=== PATIENT | female | born 1955 | race Caucasian/White ===

== ENCOUNTER → 2018-08-10 | Day surgery (SDC) | payer BC ==
[~2018-08-10] MED LIST: ALLERGY RELIEF25 M1 PO; BENTYL10 MG/1 ML PO; CLONAZEPAM1 MG PO; DILAUDID2 MG PO; ESTROGEN-METHY1 EAC1 PO; ESTROGEN-METHY1 EAC2 PO; FLAGYL500 MG PO; FLONASE; LABETALOL HCL100 MG PO; LANSOPRAZOLE30 MG PO; LAXATIVE DIETA500 MG PO; LEVAQUIN500 MG PO; LEVOTHYROXINE88 MCG PO; LYRICA75 MG PO; MECLIZINE HCL25 MG PO; METFORMIN HCL500 M2 PO; METOPROLOL SUCC50 MG PO; MIDAZOLAM HCL 2 MG/2 ML VIAL ONE; NEXIUM40 MG PO; NIFEDIPINE ER30 M1 PO; PROMETHAZINE HC25 M1 PO; PROPOFOL IV EMULSION 10 MG/ML 50 ML VIAL ONE; SERTRALINE HCL100 MG PO; STOOL SOFTENER50 MG PO; SYNTHROID125 MCG PO; TRAZODONE HCL150 MG PO; VIBERZI PO; VITAMIN D250000 UNIT PO; ZOFRAN4 MG/5 ML PO
[2018-08-10 13:20] VITALS: BP 140/71
--- OUTSIDE RECORDS SUMMARY | 2018-08-17 12:17 | XMS REPORT ---
Author Author [facility] Address Unknown Phone Unavailable Care Team Providers Care Data Processing Mechanic Name Role Phone OTF MOYA Unavailable Unavailable Problems This patient has no known problems. Allergies, Adverse Reactions, Alerts This patient has no known allergies or adverse reactions. Medications This patient has no known medications. Results Test Description Test Time Test Comments Text Results Atomic Results Result Comments US RENAL RETROPERITONEAL COMP [place] [address] Patient Name: NEERU BETANCUR MR #: [id number] : 1955 Age/Sex: 61/F Req #: [id number] [facility] Physician: Ordered by: OTF MOYA MD Report #: [id number] Location: Room/Bed: Procedure: [id number] US/US RENAL RETROPERITONEAL COMP Exam Date: 07/31/17 Exam Time: 1354 REPORT STATUS: Signed PROCEDURE: US RETROPERITONEAL ( KIDNEY ). COMPARISON: None. INDICATIONS: Mixed Incontinence, Incomplete Bladder Emptying TECHNIQUE: Blackman-scale and color sonographic images of the bilateral kidneys and bladder where obtained in transverse and longitudinal planes. FINDINGS: RIGHT KIDNEY: 8.2 x 3.0 x 3.6 cm, cortex 0.8 cm Cysts: None Solid masses: None Stones: None Hydronephrosis: None Echogenicity: Increased LEFT KIDNEY: 10.6 x 6.6 x 5.5 cm, cortex 1.7 cm Cysts: None Solid masses: None Stones: None Hydronephrosis: None Echogenicity: Increased Bladder: Normal. Bilateral ureteral jets are visualized. CONCLUSION: 1. Echogenic bilateral kidneys consistent with medical renal disease. 2. Right kidney is smaller with thinner renal cortex. Correlate for possible renal artery stenosis. Dictated by: Brandon Richards M.D. on 07/31/2017 at 14:35 Electronically approved by: Brandon Richards M.D. on 07/31/2017 at 14:35 Dictated By: BRANDON RICHARDS MD [id number] Transcribed By: NEFTALI on 07/31/17 1435 COPY TO: OTF MOYA MD
--- OUTSIDE RECORDS SUMMARY | 2018-08-17 12:17 | XMS REPORT | Clinical Summary ---
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 Disp. Refills Start End Date Status Date HYDROcodone-acetaminophen Take 1 tablet by mouth Active (NORCO) 10-325 mg per every 6 (six) hours as tablet needed for moderate pain. promethazine (PHENERGAN) Take 25 mg by mouth every Active 25 MG tablet 6 (six) hours as needed for nausea or vomiting. estradiol (ESTRACE) 0.5 Take 0.5 mg by mouth Active MG tablet daily. metFORMIN XR Take 500 mg by mouth 2 Active (GLUCOPHAGE-XR) 500 mg 24 (two) times a day. hr tablet levothyroxine (SYNTHROID, Take 100 mcg by mouth Active LEVOXYL) 125 mcg tablet every morning. traZODone (DESYREL) 150 Take 150 mg by mouth Active MG tablet nightly. dicyclomine (BENTYL) 10 Take 10 mg by mouth 4 Active MG capsule (four) times a day as needed. lansoprazole (PREVACID) Take 30 mg by mouth 2 Active 30 MG capsule (two) times a day. meclizine (ANTIVERT) 25 Take 25 mg by mouth 3 Active mg tablet (three) times a day as needed for dizziness. pregabalin (LYRICA) 75 MG Take 75 mg by mouth Active capsule nightly. clonAZEPAM (KlonoPIN) 1 Take 2 mg by mouth every Active MG tablet morning. estrogens-methyltestoster Take 1 tablet by mouth Active one (EEMT,COVARYX) daily. 1.25-2.5 mg per tablet DULoxetine (CYMBALTA) 60 Take 60 mg by mouth Active MG capsule daily. sertraline (ZOLOFT) 100 Take 100 mg by mouth Active MG tablet daily. QUEtiapine (SEROquel) 100 Take 100 mg by mouth Active MG tablet nightly. NIFEdipine XL (PROCARDIA Take 60 mg by mouth Active XL) 60 MG 24 hr tablet daily. metoprolol succinate XL Take 50 mg by mouth Active (TOPROL-XL) 50 mg 24 hr daily. tablet fluticasone (FLONASE) 50 2 sprays by Each Nare Active mcg/actuation nasal spray route daily. eluxadoline (VIBERZI) 100 Take 100 mg by mouth 2 03/31/20 Discontin mg tablet tablet (two) times a day. 18 ued clonAZEPAM (KlonoPIN) 1 Take 1 mg by mouth 2 06/11/20 Discontin MG tablet (two) times a day. 1 tab 18 ued at noon and bedtime sertraline (ZOLOFT) 100 Take 100 mg by mouth 03/31/20 Discontin MG tablet daily. 18 ued ergocalciferol (VITAMIN Take 50,000 Units by 06/11/20 Discontin D2) 50,000 unit capsule mouth once a week. 18 ued esomeprazole (NexIUM) 40 Take 40 mg by mouth daily 03/31/20 Discontin MG capsule before breakfast. 18 ued fluticasone (FLONASE) 50 2 sprays by Each Nare 03/31/20 Discontin mcg/actuation nasal spray route daily. 18 ued clonIDINE HCl (CATAPRES) Take 0.2 mg by mouth 2 06/11/20 Discontin 0.2 MG tablet (two) times a day. Am and 18 ued bedtime clonIDINE (CATAPRES) 0.1 Take 0.5 mg by mouth 06/11/20 Discontin MG tablet daily. At 2pm 18 ued Active Problems Problem Noted Date Synovitis of left shoulder 06/22/2018 Chronic left shoulder pain 06/11/2018 Rotator cuff insufficiency of left shoulder 06/11/2018 Current every day smoker 06/11/2018 Abscess of lower back 04/01/2018 Weakness 03/30/2018 Encounters Date Type Specialty Care Team Description 06/22/2018 Office Visit Orthopedic Surgery Mian Roger MD Chronic left shoulder pain (Primary Dx); Synovitis of left shoulder; Current every day smoker 06/18/2018 Hospital Radiology Mian Roger MD Chronic pain in left Encounter shoulder 06/16/2018 Orders Only Orthopedic Surgery Mian Roger MD Chronic pain in left shoulder (Primary Dx) 06/14/2018 Telephone Orthopedic Surgery Mian Roger MD 06/12/2018 Hospital Radiology Mian Roger MD Encounter 06/12/2018 Hospital Radiology Mian Roger MD Encounter 06/12/2018 Ancillary Radiology Mian Roger MD Orders 06/11/2018 Office Visit Orthopedic Surgery Mian Roger MD Chronic left shoulder pain (Primary Dx); Rotator cuff insufficiency of left shoulder; Current every day smoker 04/04/2018 Anesthesia General Surgery Sean Hess MD Event 04/04/2018 Procedure Pass General Surgery 04/04/2018 Surgery General Surgery Balta Washington MD Cholecystectomy, Laparoscopic, With Possible Cholangiography 03/30/2018 [facility] General Internal Medicine Bryce Sanchez (Primary Dx); - Encounter MD Jourdan Epigastric pain 04/13/2018 Karie Garnica MD after 08/09/2017 Social History Tobacco Use Types Packs/Day Years Used Date Current Every Day Smoker Cigarettes Smokeless Tobacco: Never Used Alcohol Use Drinks/Week oz/Week Comments No Sex Assigned at Date Recorded Not on file Last Filed Vital Signs Vital Sign Reading Time Taken Blood Pressure 176/87 04/13/2018 7:25 AM CDT Pulse 87 04/13/2018 7:25 AM CDT Temperature 36.3 C (97.4 F) 04/13/2018 7:25 AM CDT Respiratory Rate 20 04/13/2018 7:25 AM CDT Oxygen Saturation 95% 04/13/2018 7:25 AM CDT Inhaled Oxygen - - Concentration Weight 62.1 kg (137 lb) 06/22/2018 3:05 PM CDT Height 162.6 cm (5' 4") 06/22/2018 3:05 PM CDT Body Mass Index 23.52 06/22/2018 3:05 PM CDT Plan of Treatment Health Maintenance Due Date Last Done Comments CERVICAL CANCER SCREENING 1977 BREAST CANCER SCREENING 2006 COLON CANCER SCREENING 2006 SHINGRIX VACCINE (#1) 2006 ZOSTER VACCINE 2016 INFLUENZA VACCINE 06/02/2018 Procedures Procedure Name Priority Date/Time Associated Diagnosis Comments FL ARTHROGRAM SHOULDER Routine 06/18/2018 Chronic pain in left Results for this LEFT 4:57 PM CDT shoulder procedure are in the results section. XR UPPER EXTREMITY Routine 06/14/2018 Results for this EXTERNAL STUDY 4:25 PM CDT procedure are in the results section. XR SPINE EXTERNAL STUDY Routine 06/04/2018 Results for this 4:25 PM CDT procedure are in the results section. POC GLUCOSE Routine 04/13/2018 Results for this 6:27 AM CDT procedure are in the results section. POC GLUCOSE Routine 04/12/2018 Results for this 8:55 PM CDT procedure are in the results section. POC GLUCOSE Routine 04/12/2018 Results for this 3:35 PM CDT procedure are in the results section. POC GLUCOSE Routine 04/12/2018 Results for this 11:36 AM CDT procedure are in the results section. IONIZED CALCIUM Routine 04/12/2018 Results for this 7:57 AM CDT procedure are in the results section. POC GLUCOSE Routine 04/12/2018 Results for this 6:41 AM CDT procedure are in the results section. POC GLUCOSE Routine 04/11/2018 Results for this 9:23 PM CDT procedure are in the results section. POC GLUCOSE Routine 04/11/2018 Results for this 4:24 PM CDT procedure are in the results section. XR ABDOMEN 1 VW STAT 04/11/2018 Results for this 1:57 PM CDT procedure are in the results section. POC GLUCOSE Routine 04/11/2018 Results for this 12:11 PM CDT procedure are in the results section. ZZESTIMATED GFR STAT 04/11/2018 Results for this 9:12 AM CDT procedure are in the results section. PHOSPHORUS LEVEL STAT 04/11/2018 Results for this 9:12 AM CDT procedure are in the results section. MAGNESIUM LEVEL STAT 04/11/2018 Results for this 9:12 AM CDT procedure are in the results section. COMPREHENSIVE METABOLIC STAT 04/11/2018 Results for this PANEL 9:12 AM CDT procedure are in the results section. HC COMPLETE BLD COUNT STAT 04/11/2018 Results for this W/AUTO DIFF 9:12 AM CDT procedure are in the results section. POC GLUCOSE Routine 04/11/2018 Results for this 6:35 AM CDT procedure are in the results section. POC GLUCOSE Routine 04/10/2018 Results for this 8:36 PM CDT procedure are in the results section. POC GLUCOSE Routine 04/10/2018 Results for this 11:39 AM CDT procedure are in the results section. POC GLUCOSE Routine 04/10/2018 Results for this 6:26 AM CDT procedure are in the results section. POC GLUCOSE Routine 04/09/2018 Results for this 8:54 PM CDT procedure are in the results section. POC GLUCOSE Routine 04/09/2018 Results for this 3:51 PM CDT procedure are in the results section. POC GLUCOSE Routine 04/09/2018 Results for this 10:48 AM CDT procedure are in the results section. XR ABDOMEN 1 VW PORTABLE STAT 04/09/2018 Results for this 10:00 AM CDT procedure are in the results section. ZZESTIMATED GFR Routine 04/09/2018 Results for this 7:25 AM CDT procedure are in the results section. PHOSPHORUS LEVEL Routine 04/09/2018 Results for this 7:25 AM CDT procedure are in the results section. MAGNESIUM LEVEL Routine 04/09/2018 Results for this 7:25 AM CDT procedure are in the results section. BASIC METABOLIC PANEL Routine 04/09/2018 Results for this 7:25 AM CDT procedure are in the results section. POC GLUCOSE Routine 04/09/2018 Results for this 6:29 AM CDT procedure are in the results section. POC GLUCOSE Routine 04/08/2018 Results for this 8:28 PM CDT procedure are in the results section. POC GLUCOSE Routine 04/08/2018 Results for this 5:29 PM CDT procedure are in the results section. POC GLUCOSE Routine 04/08/2018 Results for this 2:08 PM CDT procedure are in the results section. ZZESTIMATED GFR Routine 04/08/2018 Results for this 10:56 AM CDT procedure are in the results section. BASIC METABOLIC PANEL Routine 04/08/2018 Results for this 10:56 AM CDT procedure are in the results section. HC COMPLETE BLD COUNT Routine 04/08/2018 Results for this W/AUTO DIFF 10:56 AM CDT procedure are in the results section. POC GLUCOSE Routine 04/08/2018 Results for this 9:57 AM CDT procedure are in the results section. POC GLUCOSE Routine 04/08/2018 Results for this 6:31 AM CDT procedure are in the results section. POC GLUCOSE Routine 04/07/2018 Results for this 4:16 PM CDT procedure are in the results section. XR ABDOMEN 1 VW STAT 04/07/2018 Results for this 4:00 PM CDT procedure are in the results section. POC GLUCOSE Routine 04/07/2018 Results for this 11:09 AM CDT procedure are in the results section. ECG 12-LEAD Routine 04/07/2018 Results for this 9:52 AM CDT procedure are in the results section. POC GLUCOSE Routine 04/07/2018 Results for this 5:57 AM CDT procedure are in the results section. POC GLUCOSE Routine 04/06/2018 Results for this 8:17 PM CDT procedure are in the results section. POC GLUCOSE Routine 04/06/2018 Results for this 4:42 PM CDT procedure are in the results section. POC GLUCOSE Routine 04/06/2018 Results for this 11:33 AM CDT procedure are in the results section. ZZESTIMATED GFR Routine 04/06/2018 Results for this 9:09 AM CDT procedure are in the results section. BASIC METABOLIC PANEL Routine 04/06/2018 Results for this 9:09 AM CDT procedure are in the results section. HC COMPLETE BLD COUNT Routine 04/06/2018 Results for this W/AUTO DIFF 9:09 AM CDT procedure are in the results section. POC GLUCOSE Routine 04/06/2018 Results for this 7:56 AM CDT procedure are in the results section. POC GLUCOSE Routine 04/06/2018 Results for this 6:33 AM CDT procedure are in the results section. POC GLUCOSE Routine 04/05/2018 Results for this 8:32 PM CDT procedure are in the results section. POC GLUCOSE Routine 04/05/2018 Results for this 5:02 PM CDT procedure are in the results section. POC GLUCOSE Routine 04/05/2018 Results for this 6:45 AM CDT procedure are in the results section. POC GLUCOSE Routine 04/04/2018 Results for this 9:11 PM CDT procedure are in the results section. POC GLUCOSE Routine 04/04/2018 Results for this 4:34 PM CDT procedure are in the results section. GRAM STAIN Timed 04/04/2018 Results for this 4:15 PM CDT procedure are in the results section. AEROBIC CULTURE Timed 04/04/2018 Results for this 4:15 PM CDT procedure are in the results section. ANAEROBIC CULTURE Timed 04/04/2018 Results for this 4:15 PM CDT procedure are in the results section. FL CHOLANGIOGRAM Routine 04/04/2018 Results for this INTRAOPERATIVE 4:09 PM CDT procedure are in the results section. SURGICAL PATHOLOGY Routine 04/04/2018 Results for this REQUEST 3:35 PM CDT procedure are in the results section. PA AN ELECTIVE Routine 04/04/2018 ENDOTRACHEAL AIRWAY 3:08 PM CDT Procedure Note - Sean Hess MD - 04/04/2018 3:08 PM CDT Airway Date/Time: 04/04/2018 3:02 PM Performed by: SEAN HESS Authorized by: SEAN HESS Location: OR Urgency: Elective Difficult Airway: No Anesthesio logist: SEAN HESS Performed by: anesthesio logist Preoxygena eulalia with 100% O2: Yes Mask Ventilatio n: Easy mask Final Airway Type: Endotrache al airway Final Endotrache al Airway: ETT Cuffed: Yes Technique Used: Direct laryngosco py Insertion Site: Oral Blade Type: Turner Laryngosco pe Blade/Vide olaryngosc ope Blade Size: 3 ETT Size (mm): 7.0 Cuff at minimum occlusion pressure: Yes Measured from: Lips ETT to Lips (cm): 20 Placement Verified by: CO2 detection, direct visualizat ion and equal breath sounds Laryngosco pic view: Grade I - full view of glottis Rapid Sequence Induction (RSI): No Modified RSI: No Number of Attempts at Approach: 1 POC GLUCOSE Routine 04/04/2018 Results for this 2:16 PM CDT procedure are in the results section. ZZESTIMATED GFR STAT 04/04/2018 Results for this 6:25 AM CDT procedure are in the results section. BASIC METABOLIC PANEL STAT 04/04/2018 Results for this 6:25 AM CDT procedure are in the results section. HC COMPLETE BLD COUNT STAT 04/04/2018 Results for this W/AUTO DIFF 6:25 AM CDT procedure are in the results section. POC GLUCOSE Routine 04/03/2018 Results for this 8:37 PM CDT procedure are in the results section. POC GLUCOSE Routine 04/03/2018 Results for this 4:07 PM CDT procedure are in the results section. POC GLUCOSE Routine 04/03/2018 Results for this 11:03 AM CDT procedure are in the results section. ECHOCARDIOGRAM 2D Routine 04/03/2018 Results for this COMPLETE W MMODE SPECTRAL 10:54 AM CDT procedure are in the COLOR DOPPLER ([id number]) results section. US ABDOMEN COMPLETE Routine 04/03/2018 Results for this 8:38 AM CDT procedure are in the results section. POC GLUCOSE Routine 04/03/2018 Results for this 6:51 AM CDT procedure are in the results section. ZZESTIMATED GFR Routine 04/03/2018 Results for this 6:46 AM CDT procedure are in the results section. HC COMPLETE BLD COUNT Routine 04/03/2018 Results for this W/AUTO DIFF 6:46 AM CDT procedure are in the results section. BASIC METABOLIC PANEL Routine 04/03/2018 Results for this 6:46 AM CDT procedure are in the results section. US LOWER BACK Routine 04/02/2018 Results for this 9:53 PM CDT procedure are in the results section. POC GLUCOSE Routine 04/02/2018 Results for this 8:39 PM CDT procedure are in the results section. POC GLUCOSE Routine 04/02/2018 Results for this 4:41 PM CDT procedure are in the results section. ECG 12-LEAD STAT 04/02/2018 Results for this 3:49 PM CDT procedure are in the results section. POC GLUCOSE Routine 04/02/2018 Results for this 11:26 AM CDT procedure are in the results section. POC GLUCOSE Routine 04/02/2018 Results for this 6:16 AM CDT procedure are in the results section. POC GLUCOSE Routine 04/01/2018 Results for this 9:18 PM CDT procedure are in the results section. CT LUMBAR SPINE WO STAT 04/01/2018 Results for this CONTRAST 3:53 PM CDT procedure are in the results section. CT CHEST W CONTRAST STAT 04/01/2018 Results for this ABDOMEN W CONTRAST PELVIS 3:53 PM CDT procedure are in the W CONTRAST results section. POC GLUCOSE Routine 04/01/2018 Results for this 3:12 PM CDT procedure are in the results section. POC GLUCOSE Routine 04/01/2018 Results for this 10:33 AM CDT procedure are in the results section. HEMOGLOBIN A1C Routine 04/01/2018 Results for this 7:07 AM CDT procedure are in the results section. POC GLUCOSE Routine 04/01/2018 Results for this 6:27 AM CDT procedure are in the results section. POC GLUCOSE Routine 03/31/2018 Results for this 10:03 PM CDT procedure are in the results section. POC GLUCOSE Routine 03/31/2018 Results for this 3:56 PM CDT procedure are in the results section. THYROID STIMULATING STAT 03/31/2018 Results for this HORMONE 2:48 PM CDT procedure are in the results section. T4, FREE STAT 03/31/2018 Results for this 2:48 PM CDT procedure are in the results section. T3, FREE STAT 03/31/2018 Results for this 2:48 PM CDT procedure are in the results section. ZZESTIMATED GFR STAT 03/31/2018 Results for this 2:48 PM CDT procedure are in the results section. TROPONIN STAT 03/31/2018 Results for this 2:48 PM CDT procedure are in the results section. PHOSPHORUS LEVEL STAT 03/31/2018 Results for this 2:48 PM CDT procedure are in the results section. HEPATIC FUNCTION PANEL STAT 03/31/2018 Results for this 2:48 PM CDT procedure are in the results section. AMYLASE LEVEL STAT 03/31/2018 Results for this 2:48 PM CDT procedure are in the results section. LIPASE LEVEL STAT 03/31/2018 Results for this 2:48 PM CDT procedure are in the results section. MAGNESIUM LEVEL STAT 03/31/2018 Results for this 2:48 PM CDT procedure are in the results section. HC COMPLETE BLD COUNT STAT 03/31/2018 Results for this W/AUTO DIFF 2:48 PM CDT procedure are in the results section. BASIC METABOLIC PANEL STAT 03/31/2018 Results for this 2:48 PM CDT procedure are in the results section. POC GLUCOSE Routine 03/31/2018 Results for this 11:11 AM CDT procedure are in the results section. D-DIMER STAT 03/31/2018 Results for this 9:04 AM CDT procedure are in the results section. POC GLUCOSE Routine 03/31/2018 Results for this 6:01 AM CDT procedure are in the results section. TROPONIN Timed 03/31/2018 Results for this 3:05 AM CDT procedure are in the results section. POC GLUCOSE Routine 03/31/2018 Results for this 1:19 AM CDT procedure are in the results section. CT HEAD WO CONTRAST STAT 03/30/2018 Results for this 11:51 PM CDT procedure are in the results section. URINALYSIS SCREEN AND Routine 03/30/2018 Results for this MICROSCOPY, WITH REFLEX 11:30 PM CDT procedure are in the TO CULTURE results section. GRAM STAIN Routine 03/30/2018 Results for this 11:30 PM CDT procedure are in the results section. URINE CULTURE Routine 03/30/2018 Results for this 11:30 PM CDT procedure are in the results section. ECG 12-LEAD STAT 03/30/2018 Results for this 10:46 PM CDT procedure are in the results section. ECG ED PRELIMINARY Routine 03/30/2018 Results for this INTERPRETATION 10:28 PM CDT procedure are in the results section. ZZESTIMATED GFR STAT 03/30/2018 Results for this 9:39 PM CDT procedure are in the results section. LACTIC ACID LEVEL, SEPSIS STAT 03/30/2018 Results for this - NOW AND REPEAT 2X EVERY 9:39 PM CDT procedure are in the 3 HOURS results section. LIPASE LEVEL STAT 03/30/2018 Results for this 9:39 PM CDT procedure are in the results section. TROPONIN STAT 03/30/2018 Results for this 9:39 PM CDT procedure are in the results section. HC COMPLETE BLD COUNT STAT 03/30/2018 Results for this W/AUTO DIFF 9:39 PM CDT procedure are in the results section. BASIC METABOLIC PANEL STAT 03/30/2018 Results for this 9:39 PM CDT procedure are in the results section. XR CHEST 1 VW PORTABLE STAT 03/30/2018 Results for this 9:31 PM CDT procedure are in the results section. after 08/09/2017 Results * FL Arthrogram Shoulder Left (06/18/2018 4:57 PM) Narrative Performed At EXAMINATION:FL ARTHROGRAM SHOULDER LEFT [facility] CLINICAL HISTORY:M25.512 Pain in left shoulder, G89.29 Other chronic pain, shoulder pain consistent with rotstor cuff insufficiency left COMPARISON:None. PROCEDURE: The risks, benefits, and alternatives to procedure discussed, the patient agreed to proceed. The left shoulder was prepped and draped in a sterile manner. A timeout was performed to verify the patient's identity and the proposed procedure. 1% lidocaine was given for local anesthesia. Under fluoroscopic guidance, a 22-gauge needle was advanced into the left glenohumeral joint space and Omnipaque 240 was injected. The needle was then withdrawn and gentle pressure was started to the puncture site. Multiple static images were obtained of the left shoulder in different positions. The patient tolerated the procedure well without any immediate complications. FINDINGS: There is a good amount of contrast injected into the joint space. There is some slight irregularity of the intracapsular space could represent some mild synovitis. There is no extracapsular contrast leak. There is no irregularity of the undersurface of the rotator cuff. The glenohumeral joint space is maintained. There is narrowing of the AC joint space without erosions. Mineralization is normal. No acute fracture or dislocations are seen. IMPRESSION: No full-thickness rotator cuff tear or obvious signs of partial tear. Mild synovitis. Fluoroscopy time 2.6 minutes, 13 images obtained. [id number] Procedure Note Interface, Radiology Results Incoming - 06/21/2018 10:21 AM CDT EXAMINATION: FL ARTHROGRAM SHOULDER LEFT CLINICAL HISTORY: M25.512 Pain in left shoulder, G89.29 Other chronic pain, shoulder pain consistent with rotstor cuff insufficiency left COMPARISON: None. PROCEDURE: The risks, benefits, and alternatives to procedure discussed, the patient agreed to proceed. The left shoulder was prepped and draped in a sterile manner. A timeout was performed to verify the patient's identity and the proposed procedure. 1% lidocaine was given for local anesthesia. Under fluoroscopic guidance, a 22-gauge needle was advanced into the left glenohumeral joint space and Omnipaque 240 was injected. The needle was then withdrawn and gentle pressure was started to the puncture site. Multiple static images were obtained of the left shoulder in different positions. The patient tolerated the procedure well without any immediate complications. FINDINGS: There is a good amount of contrast injected into the joint space. There is some slight irregularity of the intracapsular space could represent some mild synovitis. There is no extracapsular contrast leak. There is no irregularity of the undersurface of the rotator cuff. The glenohumeral joint space is maintained. There is narrowing of the AC joint space without erosions. Mineralization is normal. No acute fracture or dislocations are seen. IMPRESSION: No full-thickness rotator cuff tear or obvious signs of partial tear. Mild synovitis. Fluoroscopy time 2.6 minutes, 13 images obtained. [id number] Performing Organization Address City/State/Zipcode Phone Number [facility] [address] [place] [address] * XR Upper Extremity External Study (06/14/2018 4:25 PM) Narrative Performed At This exam was not acquired at a [facility] facility and has not been [facility] interpreted by a [employer] Provider.The exam was imported into our imaging system for comparisons purposes. Performing Organization Address [facility] Phone Number [facility] [address] [place] [address] * XR Spine External Study (06/04/2018 4:25 PM) Narrative Performed At This exam was not acquired at a [facility] facility and has not been [facility] interpreted by a [employer] Provider.The exam was imported into our imaging system for comparisons purposes. Performing Organization Address [facility] Phone Number [facility] [address] [place] [address] * POC glucose (04/13/2018 6:27 AM) Only the most recent of 52 results within the time period is included. POC glucose 116 (H) 65 - 100 mg/dL [facility] OF Comment: PATHOLOGY AND Meter ID: [id number] GENOMIC MEDICINE Box Turner: Magdy Damon Performing Organization Address [facility] [address] PATHOLOGY AND GENOMIC MEDICINE * Ionized calcium (04/12/2018 7:57 AM) pH 7.45 [facility] OF [facility]OLOGY AND GENOMIC MEDICINE Ionized calcium 1.14 1.11 - 1.32 mmol/L [facility] OF [facility]OLOGY AND GENOMIC MEDICINE Specimen Plasma specimen Performing Organization Address [facility] [place] [address] PATHOLOGY AND GENOMIC MEDICINE * XR Abdomen 1 Vw (04/11/2018 1:57 PM) Only the most recent of 2 results within the time period is included. Narrative Performed At EXAMINATION:XR ABDOMEN 1 VW [facility] CLINICAL HISTORY:nausea COMPARISON:None 04/09/2018. FINDINGS: The bowel gas pattern is nonspecific. No pathologic masses or calcifications are identified. The lung bases are free of acute disease. Regional skeletal structures are within normal limits. IMPRESSION: Bowel gas has increased throughout the small bowel when compared to the prior study. The amount stool in the colon is decreased when compared to the prior study. [id number] Procedure Note Interface, Radiology Results Incoming - 04/11/2018 2:16 PM CDT EXAMINATION: XR ABDOMEN 1 VW CLINICAL HISTORY: nausea COMPARISON: None 04/09/2018. FINDINGS: The bowel gas pattern is nonspecific. No pathologic masses or calcifications are identified. The lung bases are free of acute disease. Regional skeletal structures are within normal limits. IMPRESSION: Bowel gas has increased throughout the small bowel when compared to the prior study. The amount stool in the colon is decreased when compared to the prior study. [id number] Performing Organization Address City/[facility]/Zipcode Phone Number [facility] [address] [place] [address] * Estimated GFR (04/11/2018 9:12 AM) Only the most recent of 8 results within the time period is included. GFR Non Af Amer 85 mL/min/1.73 m2 [facility] OF PATHOLOGY AND GENOMIC MEDICINE GFR Af Amer >90 mL/min/1.73 m2 [facility] OF Comment: PATHOLOGY AND Chronic kidney disease: <60 GENOMIC MEDICINE mL/min/1.73m2 Kidney failure: <15 mL/min/1.73m2 The estimated GFR is calculated from the IDMS-traceable Modification of Diet in Renal Disease Equation. The accuracy of the calculation is poor when the creatinine is normal. Calculated values >90 mL/min/1.73m2 are not reported. This equation has not been validated in children (<18 years), women, the elderly (>70 years), or ethnic groups other than Caucasians and Americans. Specimen Plasma specimen Performing Organization Address City/[facility]/Zipcode Phone Number [address] [place] [address] PATHOLOGY AND GENOMIC MEDICINE * CBC with platelet and differential (04/11/2018 9:12 AM) Only the most recent of 7 results within the time period is included. WBC 10.7 4.2 - 11.0 k/uL [facility]OLOGY AND GENOMIC MEDICINE RBC 3.97 (L) 4.04 - 5.86 m/uL [facility]OLOGY AND GENOMIC MEDICINE HGB 11.2 (L) 11.5 - 15.3 g/dL [facility] PATHOLOGY AND GENOMIC MEDICINE HCT 35.1 34.0 - 45.0 % [facility] PATHOLOGY AND GENOMIC MEDICINE MCV 88.4 80.0 - 98.0 fL [facility] PATHOLOGY AND GENOMIC MEDICINE MCH 28.2 27.0 - 34.0 pg [facility] PATHOLOGY AND GENOMIC MEDICINE MCHC 31.9 31.5 - 36.5 g/dL [facility] PATHOLOGY AND GENOMIC MEDICINE RDW - SD 47.1 37.0 - 51.0 fL [facility] PATHOLOGY AND GENOMIC MEDICINE MPV 11.0 (H) 7.4 - 10.4 fL [facility]OLOGY AND GENOMIC MEDICINE Platelet count 283 150 - 400 k/uL [facility] PATHOLOGY AND GENOMIC MEDICINE Nucleated RBC 0.00 /100 WBC [facility] PATHOLOGY AND GENOMIC MEDICINE Neutrophils 62.3 36.0 - 66.0 % [facility] PATHOLOGY AND GENOMIC MEDICINE Lymphocytes 26.3 24.0 - 44.0 % [facility] PATHOLOGY AND GENOMIC MEDICINE Monocytes 9.7 (H) 0.0 - 6.0 % [facility] PATHOLOGY AND GENOMIC MEDICINE Eosinophils 0.5 0.0 - 6.0 % [facility] PATHOLOGY AND GENOMIC MEDICINE Basophils 0.7 0.0 - 1.2 % [facility] PATHOLOGY AND GENOMIC MEDICINE Immature granulocytes 0.5 0.0 - 1.0 % [facility] PATHOLOGY AND GENOMIC MEDICINE Specimen Blood Performing Organization Address City/[facility] [place] [address] PATHOLOGY AND GENOMIC MEDICINE * Phosphorus level (04/11/2018 9:12 AM) Only the most recent of 3 results within the time period is included. Phosphorus 2.5 2.5 - 4.5 mg/dL [facility] PATHOLOGY AND GENOMIC MEDICINE Specimen Plasma specimen Performing Organization Address City/[facility] [place] [address] PATHOLOGY AND [facility] * Magnesium level (04/11/2018 9:12 AM) Only the most recent of 3 results within the time period is included. Magnesium 1.80 1.60 - 2.40 mg/dL [facility] PATHOLOGY AND GENOMIC MEDICINE Specimen Plasma specimen Performing Organization Address [facility] [place] [address] PATHOLOGY AND GENOMIC MEDICINE * Comprehensive metabolic panel (04/11/2018 9:12 AM) Sodium 140 135 - 150 mEq/L [facility] OF PATHOLOGY AND GENOMIC MEDICINE Potassium 3.7 3.5 - 5.0 mEq/L [facility] OF PATHOLOGY AND GENOMIC MEDICINE Chloride 108 100 - 109 mEq/L [facility] PATHOLOGY AND GENOMIC MEDICINE CO2 26 24 - 32 mmol/L [facility] OF PATHOLOGY AND GENOMIC MEDICINE Anion gap 6@ANIO (L) 7 - 15 mEq/L [facility] PATHOLOGY AND GENOMIC MEDICINE BUN 4 (L) 7 - 18 mg/dL [facility] PATHOLOGY AND GENOMIC MEDICINE Creatinine 0.7 (L) 0.8 - 1.5 mg/dL [facility] PATHOLOGY AND GENOMIC MEDICINE Glucose 121 (H) 65 - 100 mg/dL [facility] OF PATHOLOGY AND GENOMIC MEDICINE Calcium 8.0 (L) 8.6 - 10.7 mg/dL [facility] PATHOLOGY AND GENOMIC MEDICINE Protein 6.0 (L) 6.3 - 8.2 g/dL [facility] PATHOLOGY AND GENOMIC MEDICINE Albumin 2.5 (L) 3.2 - 5.0 g/dL [facility] PATHOLOGY AND GENOMIC MEDICINE A/G ratio 0.7 0.7 - 3.8 [facility] PATHOLOGY AND GENOMIC MEDICINE Alkaline phosphatase 87 30 - 120 U/L [facility] PATHOLOGY AND GENOMIC MEDICINE AST 13 (L) 15 - 37 U/L [facility] PATHOLOGY AND GENOMIC MEDICINE ALT 22 (L) 30 - 65 U/L [facility] PATHOLOGY AND GENOMIC MEDICINE Total bilirubin 0.4 0.2 - 1.2 mg/dL [facility] PATHOLOGY AND GENOMIC MEDICINE Specimen Plasma specimen Performing Organization Address City/State/Zipcode Phone Number [facility] [address] [facility] [facility] [place] [address] PATHOLOGY AND GENOMIC MEDICINE * XR Abdomen 1 Vw Portable (04/09/2018 10:00 AM) Narrative Performed At EXAMINATION:XR ABDOMEN 1 VW PORTABLE [facility] CLINICAL HISTORY:fecal retention COMPARISON:04/07/2018 FINDINGS: XR ABDOMEN 1 VW PORTABLE images are submitted. The bowel gas pattern is nonspecific. No pathologic masses or calcifications are identified. Bowel gas scattered throughout the small bowel and colon. There is no evidence of any obstruction. There are no dilated loops of bowel. Residual contrast is seen within the colon. There are changes of prior cholecystectomy. IMPRESSION: 1. Mild colonic fecal retention is present. 2. There is no focal bowel obstruction. [facility]-[id number] Procedure Note Interface, Radiology Results Incoming - 04/09/2018 10:06 AM CDT EXAMINATION: XR ABDOMEN 1 VW PORTABLE CLINICAL HISTORY: fecal retention COMPARISON: 04/07/2018 FINDINGS: XR ABDOMEN 1 VW PORTABLE images are submitted. The bowel gas pattern is nonspecific. No pathologic masses or calcifications are identified. Bowel gas scattered throughout the small bowel and colon. There is no evidence of any obstruction. There are no dilated loops of bowel. Residual contrast is seen within the colon. There are changes of prior cholecystectomy. IMPRESSION: 1. Mild colonic fecal retention is present. 2. There is no focal bowel obstruction. [facility]-[id number] Performing Organization Address City/[facility]/Zipcode Phone Number [facility] [address] [place] [address] * Basic metabolic panel (04/09/2018 7:25 AM) Only the most recent of 7 results within the time period is included. Sodium 142 135 - 150 mEq/L [facility] OF PATHOLOGY AND GENOMIC MEDICINE Potassium 3.7 3.5 - 5.0 mEq/L [facility] OF PATHOLOGY AND GENOMIC MEDICINE Chloride 108 100 - 109 mEq/L [facility]Y AND GENOMIC MEDICINE CO2 25 24 - 32 mmol/L [facility] OF PATHOLOGY AND GENOMIC MEDICINE Anion gap 9@ANIO 7 - 15 mEq/L [facility] OF PATHOLOGY AND GENOMIC MEDICINE BUN 3 (L) 7 - 18 mg/dL [facility] PATHOLOGY AND GENOMIC MEDICINE Creatinine 0.6 (L) 0.8 - 1.5 mg/dL [facility] OF PATHOLOGY AND GENOMIC MEDICINE Glucose 106 (H) 65 - 100 mg/dL [facility] OF PATHOLOGY AND GENOMIC MEDICINE Calcium 8.1 (L) 8.6 - 10.7 mg/dL [facility] OF PATHOLOGY AND GENOMIC MEDICINE Specimen Plasma specimen Performing Organization Address City/[facility]/Zipcode Phone Number [address] [place] [address] PATHOLOGY AND GENOMIC MEDICINE * ECG 12 lead (04/07/2018 9:52 AM) Only the most recent of 3 results within the time period is included. Ventricular rate 43 [facility] Atrial rate 43 [facility] PA interval 126 [facility] QRSD interval 74 [facility] QT interval 516 [facility] QTC interval 436 [facility] MUSE P axis 1 26 [facility] MUSE QRS axis 1 41 [facility] MUSE T wave axis 26 [facility] MUSE EKG impression Marked sinus [facility] MUSE bradycardia-Abnormal ECG-In automated comparison with ECG of 02-APR-2018 15:49,-Vent. rate has decreased BY38 BPM-Nonspecific T wave abnormality no longer evident in Anterior leads- Performing Organization Address City/[facility] Phone Number [facility] [address] [place] [phone] * Aerobic culture (04/04/2018 4:15 PM) Aerobic culture isolate Staphylococcus aureus [facility] DEPARTMENT OF Occasional PATHOLOGY AND , susceptibility to follow [facility] This organism is Methicillin Resistant. (A) Comment: Specimen Information Specimen Source: Abscess Specimen Site: Back, lower Specimen Abscess - Back, lower Organism Antibiotic Method Susceptibility Staphylococcus aureus Ampicillin MISBAH mcg/mL: Resistant Staphylococcus aureus Clindamycin MISBAH <=0.5 mcg/mL: Susceptible Staphylococcus aureus Cefazolin MISBAH mcg/mL: Resistant Staphylococcus aureus Erythromycin MISBAH <=0.5 mcg/mL: Susceptible Staphylococcus aureus Levofloxacin MISBAH >4 mcg/mL: Resistant Staphylococcus aureus Linezolid MISBAH 2 mcg/mL: Susceptible Staphylococcus aureus Minocycline MISBAH <=1 mcg/mL: Susceptible Staphylococcus aureus Oxacillin MISBAH >2 mcg/mL: Resistant Staphylococcus aureus Penicillin G MISBAH >1 mcg/mL: Resistant Staphylococcus aureus Rifampin MISBAH <=0.5 mcg/mL: Susceptible Staphylococcus aureus Trimethoprim/Sulfamethoxa MISBAH <=0.5/9.5 mcg/mL: zole Susceptible Staphylococcus aureus Tetracycline MISBAH <=0.5 mcg/mL: Susceptible Staphylococcus aureus Vancomycin MISBAH 1 mcg/mL: Susceptible Performing Organization Address [facility] Phone Number [facility] DEPARTMENT OF [address] [place] [address] PATHOLOGY AND GENOMIC MEDICINE * Gram stain (04/04/2018 4:15 PM) Only the most recent of 2 results within the time period is included. Gram stain isolate Few WBC's [facility] DEPARTMENT OF No organisms seen PATHOLOGY AND Comment: GENOMIC MEDICINE Specimen Information Specimen Source: Abscess Specimen Site: Back, lower Specimen Abscess - Back, lower Performing Organization Address City/State/[facility] Phone Number [facility] DEPARTMENT OF [address] [place] [address] PATHOLOGY AND GENOMIC MEDICINE * Anaerobic culture (04/04/2018 4:15 PM) Anaerobic culture isolate No anaerobic organisms [facility] DEPARTMENT OF isolated. PATHOLOGY AND Comment: GENOMIC MEDICINE Specimen Information Specimen Source: Abscess Specimen Site: Back, lower Specimen Abscess - Back, lower Performing Organization Address City/[facility]/Zipcode Phone Number [address] [address] PATHOLOGY AND GENOMIC MEDICINE * FL Cholangiogram Intraoperative (04/04/2018 4:09 PM) Narrative Performed At EXAMINATION:FL CHOLANGIOGRAM INTRAOPERATIVE [facility] CLINICAL HISTORY:Cholecystectomy COMPARISON:None. TECHNIQUE: Intraoperative cholangiogram was performed. No radiologist present. Spot radiographs were made available for evaluation. Radiation dose: 0.107 mGym2 IMPRESSION: 1.See procedure report for more complete details. 2.Common bile duct appears dilated. No filling defect is seen. Intrahepatic ducts and not opacified. Contrast material enters the duodenum. [facility]-[id number] Procedure Note Interface, Radiology Results Incoming - 04/04/2018 4:29 PM CDT EXAMINATION: FL CHOLANGIOGRAM INTRAOPERATIVE CLINICAL HISTORY: Cholecystectomy COMPARISON: None. TECHNIQUE: Intraoperative cholangiogram was performed. No radiologist present. Spot radiographs were made available for evaluation. Radiation dose: 0.107 mGym2 IMPRESSION: 1. See procedure report for more complete details. 2. Common bile duct appears dilated. No filling defect is seen. Intrahepatic ducts and not opacified. Contrast material enters the duodenum. [facility]-[id number] Performing Organization Address City/[facility]/Zipcode Phone Number [facility] [address] [place] [address] * Surgical pathology request (04/04/2018 3:35 PM) [facility] PATHOLOGY AND GENOMIC MEDICINE Surgical pathology report See link below for PDF Lab [facility] Report PATHOLOGY AND GENOMIC MEDICINE Result status This is Revised Report to [facility] DE[facility]MENT OF [id number] PATHOLOGY AND GENOMIC MEDICINE Performing Organization Address City/State/Zipcode Phone Number [facility] DEPARTMENT OF [address] [place] [address] PATHOLOGY AND GENOMIC MEDICINE * Echocardiogram complete w contrast and 3D if needed (04/03/2018 10:54 AM) Ao Root Diameter 2.93 cm [facility] AoV Area, Vmax 2.91 cm2 [facility] AoV Area, VTI 3.07 cm2 [facility] AoV Mean PG 3.63 mmHg [facility] AoV Peak PG 7.67 mmHg [facility] AoV Vmax 1.41 m/s [facility] AoV VTI 0.24 m [facility] IVS,d 0.65 0.6 - 1.2 cm [facility] IVS/LVPW,2D 0.72 [facility] Left Atrium Dimension 2.87 cm [facility] Anterior LV,d 4.94 cm [facility] LV EF,2D 66.82 % [facility] LV,s 3.42 cm [facility] LVOT area 2.86 cm2 [facility] LVOT Diam,S 1.91 cm [facility] LVOT Vmax 1.40 m/s [facility] LVOT VTI 0.25 m [facility] LVPWD,d 0.90 cm [facility] PV Pk Grad 3.65 mmHg [facility] PV VMAX 0.96 m/s [facility] TR Vpeak 2.46 mm/s [facility] MV E A ratio 0.61 mmHg [facility] TR pk grad 22.06 mmHg [facility] E wave decelartion time 111.49 msec [facility] MV Peak A Jani 1.07 m/s [facility] MV valve area p 1/2 6.80 cm2 [facility] method MV Peak E Jani 0.65 m/s [facility] MV stenosis pressure 1/2 32.33 ms [facility] time AV LVOT peak gradient 7.85 mmHg [facility] Ao Root Diameter 2.93 cm [facility] MV mean gradient 2.27 mmHg [facility] LV SYS VOL 48.08 ml [facility] LV OATES VOL 114.90 ml [facility] LV SV Teich 2D 66.82 ml [facility] LV Vol s Teich PSAX 48.08 ml [facility] LVOT CO 6.04 l/min [facility] LVOT HR for LVOT CO 82.43 bpm [facility] MR peak grad 7.96 mmHg [facility] MV Vmax 1.41 m [facility] MV VTI Tips 0.22 m [facility] AoV Vmn 0.90 [facility] IVS s 2D 0.94 [facility] LV FS Teich 2D 30.77 [facility] MV AE ratio 1.63 [facility] LV FS Cube 2D 30.77 [facility] LVOT Vmn 0.88 [facility] Aov area Vmn 2.85 cm2 [facility] LVOT mean grad 3.76 mmHg [facility] MAX Pred HR 158.34 [facility] 85 of MPHR 134.59 [facility] Calc MPHR 158.34 bpm [facility] IVS pct thck PLAX 44.08 % [facility] LV SV Cube 2D 80.49 ml [facility] LV vol d cube 2D 120.46 ml [facility] LV vol s cube 2D 39.97 ml [facility] LVPW pct thck PLAX 39.46 % [facility] LVPW s PLAX 1.26 cm [facility] MV Decel slope 5.87 m/s2 [facility] Pred Exer Dur R1 7.73 [facility] Pred METS R1 6.68 [facility] Velocity Ratio (V1/V2) 0.99 m/s [facility] EF 58.15 % [facility] E/A ratio 0.61 [facility] Narrative Performed At [facility] The left ventricle chamber size is normal. Left Ventricular ejection fraction is 55 - 60%. Spectral Doppler shows impaired relaxation pattern of left ventricular diastolic filling. Performing Organization Address City/State/Zipcode Phone Number [facility] [address] [place] [address] * US Abdomen Complete (04/03/2018 8:38 AM) Narrative Performed At EXAM: US ABDOMEN COMPLETE [facility] CLINICAL DATA:ABDOMINAL PAIN COMPARISON: NONE. FINDINGS: The exam is suboptimal due to excessive bowel gas and patient unable to turn LIVER:The liver demonstrates normal echogenicity without focal mass or intrahepatic biliary ductal dilatation. MPV:Doppler evaluation of the portal vein demonstrates normal hepatopedal flow. The portal vein measuring approximately 0.75 cm. GALLBLADDER:Multiple mobile gallstones are seen.. The largest gallstone measuring approximately 1.2 cm. The gallbladder wall is not thickened and there is no pericholecystic fluid. CBD: 6 mm, upper limits of normal. PANCREAS:The visualized portions of the pancreas are within normal limits. SPLEEN: The spleen is not visualized. RIGHT KIDNEY:Atrophy of the right kidney is seen. There is no evidence of mass, calculi, or hydronephrosis. . The right kidney measures 7.9 x 4.2 x 4 cm. LEFT KIDNEY: The left kidney is not visualized. AORTA:The visualized upper abdominal aorta demonstrates no evidence of ectasia or aneurysm. IVC:The visualized portions of the inferior vena cava are unremarkable. ASCITES: No abnormal abdominal fluid collections are visualized. There is no evidence of ascites. PLEURAL EFFUSION:There are no pleural effusions. IMPRESSION: Suboptimal exam showing cholelithiasis without evidence of cholecystitis. [id number] Procedure Note Interface, Radiology Results Incoming - 04/03/2018 8:49 AM CDT EXAM: US ABDOMEN COMPLETE CLINICAL DATA: ABDOMINAL PAIN COMPARISON: NONE. FINDINGS: The exam is suboptimal due to excessive bowel gas and patient unable to turn LIVER: The liver demonstrates normal echogenicity without focal mass or intrahepatic biliary ductal dilatation. MPV: Doppler evaluation of the portal vein demonstrates normal hepatopedal flow. The portal vein measuring approximately 0.75 cm. GALLBLADDER: Multiple mobile gallstones are seen.. The largest gallstone measuring approximately 1.2 cm. The gallbladder wall is not thickened and there is no pericholecystic fluid. CBD: 6 mm, upper limits of normal. PANCREAS: The visualized portions of the pancreas are within normal limits. SPLEEN: The spleen is not visualized. RIGHT KIDNEY: Atrophy of the right kidney is seen. There is no evidence of mass, calculi, or hydronephrosis. . The right kidney measures 7.9 x 4.2 x 4 cm. LEFT KIDNEY: The left kidney is not visualized. AORTA: The visualized upper abdominal aorta demonstrates no evidence of ectasia or aneurysm. IVC: The visualized portions of the inferior vena cava are unremarkable. ASCITES: No abnormal abdominal fluid collections are visualized. There is no evidence of ascites. PLEURAL EFFUSION: There are no pleural effusions. IMPRESSION: Suboptimal exam showing cholelithiasis without evidence of cholecystitis. [id number] Performing Organization Address City/State/Zipcode Phone Number [facility] [address] [place] [address] * [facility] (04/02/2018 9:53 PM) Narrative Performed At [facility] CLINICAL INDICATION:Sot tissue massevaluate COMPARISON:CT performed on 04/01/2018. COMMENTS: Sonographic evaluation of the left lower back was performed utilizing grayscale sonography and color Doppler interrogation. IMPRESSION: 1. There is a well-defined 5.9 x 1.3 x 2.5 cm rectangular lesion within the soft tissues of the left lower back, which represents the electronic device visualized on the recently performed CT exam. 2. No soft tissue mass or soft tissue fluid collection is identified. [facility]-[id number] Procedure Note Hm Interface, Radiology Results Incoming - 04/02/2018 11:32 PM CDT US LOWER BACK CLINICAL INDICATION: Sot tissue mass evaluate COMPARISON: CT performed on 04/01/2018. COMMENTS: Sonographic evaluation of the left lower back was performed utilizing grayscale sonography and color Doppler interrogation. IMPRESSION: 1. There is a well-defined 5.9 x 1.3 x 2.5 cm rectangular lesion within the soft tissues of the left lower back, which represents the electronic device visualized on the recently performed CT exam. 2. No soft tissue mass or soft tissue fluid collection is identified. [facility]-[id number] Performing Organization Address City/State/Zipcode Phone Number [facility] [address] [place] [address] * CT Lumbar Spine Wo Contrast (04/01/2018 3:53 PM) Narrative Performed At EXAMINATION:CT LUMBAR SPINE WO CONTRAST [facility] CLINICAL HISTORY:painful mass after removal of morphine pumpcannot have MRI(instrumentation of the cervical spine) COMPARISON: CT lumbar spine dated 01/30/2017. FINDINGS: Noncontrast CT of the lumbar spine is interpreted. CT imaging was performed with iterative reconstruction techniques and/or automated exposure control to reduce radiation dose. The lowest fully formed disc space is designated L5-S1. There is mild chronic compression fracture of the superior endplate of L1 with mild retropulsion that has healed over the interval. There is no significant canal stenosis. The remaining lumbar vertebrae are preserved in height. No displaced fracture or aggressive bone lesion is seen. L1-2: Minimal disc degenerative changes. L2-3: Minimal disc degenerative changes. Minimal bilateral facet arthrosis. L3-4: Minimal disc degenerative changes. Slight disc bulge. Minimal bilateral facet arthrosis. L4-5: Minimal disc degenerative changes. Shallow disc bulge. Mild bilateral facet arthrosis. L5-S1: Moderate right and mild left facet arthrosis. There is deconditioning the paraspinous musculature. Spinal cord stimulator control unit is noted in the posterior soft tissues on the left. IMPRESSION: No acute abnormality of the lumbar spine is identified. Mild chronic compression deformity of the superior endplate of L1. Mild lumbar spondylosis without significant canal or foraminal stenosis. [facility]-[id number] Procedure Note Hm Interface, Radiology Results Incoming - 04/01/2018 4:09 PM CDT EXAMINATION: CT LUMBAR SPINE WO CONTRAST CLINICAL HISTORY: painful mass after removal of morphine pump cannot have MRI(instrumentation of the cervical spine) COMPARISON: CT lumbar spine dated 01/30/2017. FINDINGS: Noncontrast CT of the lumbar spine is interpreted. CT imaging was performed with iterative reconstruction techniques and/or automated exposure control to reduce radiation dose. The lowest fully formed disc space is designated L5-S1. There is mild chronic compression fracture of the superior endplate of L1 with mild retropulsion that has healed over the interval. There is no significant canal stenosis. The remaining lumbar vertebrae are preserved in height. No displaced fracture or aggressive bone lesion is seen. L1-2: Minimal disc degenerative changes. L2-3: Minimal disc degenerative changes. Minimal bilateral facet arthrosis. L3-4: Minimal disc degenerative changes. Slight disc bulge. Minimal bilateral facet arthrosis. L4-5: Minimal disc degenerative changes. Shallow disc bulge. Mild bilateral facet arthrosis. L5-S1: Moderate right and mild left facet arthrosis. There is deconditioning the paraspinous musculature. Spinal cord stimulator control unit is noted in the posterior soft tissues on the left. IMPRESSION: No acute abnormality of the lumbar spine is identified. Mild chronic compression deformity of the superior endplate of L1. Mild lumbar spondylosis without significant canal or foraminal stenosis. [facility]-[id number] Performing Organization Address City/State/Zipcode Phone Number [facility] [address] [place] [address] * CT Chest W Contrast Abdomen W Contrast Pelvis W Contrast (04/01/2018 3:53 PM) Narrative Performed At EXAMINATION:CT CHEST W CONTRAST ABDOMEN W CONTRAST PELVIS W CONTRAST RADIANT CLINICAL HISTORY:abdominal pain loosing weight TECHNIQUE: Multiple axial images of the chest, abdomen, and pelvis were obtained following intravenous administration of iodinated contrast. Sagittal and coronal computerized reformatted images were obtained. CT imaging was performed with iterative reconstruction techniques and/or automated exposure control to reduce radiation dose. COMPARISON:None. FINDINGS: Chest: 1. There is minor linear subsegmental atelectasis or scar scattered in both lungs. No consolidation or suspicious pulmonary nodule is seen. 2.There is no pleural or pericardial effusion. 3.No significant thoracic lymphadenopathy is seen. 4.Heart size is normal. Abdomen and Pelvis: 1. There is diffuse dilation of the common duct, 10 mm diameter, and there is mild central intrahepatic biliary dilation. The gallbladder is also distended with a trace amount of pericholecystic fluid. No calcified stones in the gallbladder or common duct are seen. The pancreatic duct is not dilated and no obvious pancreatic mass is seen. 2.A 4.5 cm benign left hepatic cyst is present. Otherwise the liver is unremarkable. 3.The spleen and adrenals are normal. 4.There is relative right renal cortical atrophy. Neither kidney demonstrates hydronephrosis or a mass. Urinary bladder is empty but otherwise unremarkable. 5.No small or large bowel obstruction or inflammation is seen. There is no suspicious wall thickening. The stomach is within normal limits. The appendix is not definitely seen, but there are no inflammatory changes near the cecum. 6.The uterus is absent. 7.There is no suspicious lymphadenopathy or ascites. 8.Diffuse atherosclerosis is present. Skeletal: Generalized osteopenia. Mild L1 superior endplate compression deformity, likely chronic. ACDF noted in the cervical spine. No acute or aggressive skeletal abnormalities seen. IMPRESSION: Diffuse biliary dilation. Possible cholecystitis.Recommend clinical correlation for possible cholecystitis, and contrast-enhanced abdominal MRI with MRCP for further evaluation. [id number] Procedure Note Hm Interface, Radiology Results Incoming - 04/01/2018 4:32 PM CDT EXAMINATION: CT CHEST W CONTRAST ABDOMEN W CONTRAST PELVIS W CONTRAST CLINICAL HISTORY: abdominal pain loosing weight TECHNIQUE: Multiple axial images of the chest, abdomen, and pelvis were obtained following intravenous administration of iodinated contrast. Sagittal and coronal computerized reformatted images were obtained. CT imaging was performed with iterative reconstruction techniques and/or automated exposure control to reduce radiation dose. COMPARISON: None. FINDINGS: Chest: 1. There is minor linear subsegmental atelectasis or scar scattered in both lungs. No consolidation or suspicious pulmonary nodule is seen. 2. There is no pleural or pericardial effusion. 3. No significant thoracic lymphadenopathy is seen. 4. Heart size is normal. Abdomen and Pelvis: 1. There is diffuse dilation of the common duct, 10 mm diameter, and there is mild central intrahepatic biliary dilation. The gallbladder is also distended with a trace amount of pericholecystic fluid. No calcified stones in the gallbladder or common duct are seen. The pancreatic duct is not dilated and no obvious pancreatic mass is seen. 2. A 4.5 cm benign left hepatic cyst is present. Otherwise the liver is unremarkable. 3. The spleen and adrenals are normal. 4. There is relative right renal cortical atrophy. Neither kidney demonstrates hydronephrosis or a mass. Urinary bladder is empty but otherwise unremarkable. 5. No small or large bowel obstruction or inflammation is seen. There is no suspicious wall thickening. The stomach is within normal limits. The appendix is not definitely seen, but there are no inflammatory changes near the cecum. 6. The uterus is absent. 7. There is no suspicious lymphadenopathy or ascites. 8. Diffuse atherosclerosis is present. Skeletal: Generalized osteopenia. Mild L1 superior endplate compression deformity, likely chronic. ACDF noted in the cervical spine. No acute or aggressive skeletal abnormalities seen. IMPRESSION: Diffuse biliary dilation. Possible cholecystitis. Recommend clinical correlation for possible cholecystitis, and contrast-enhanced abdominal MRI with MRCP for further evaluation. [facility]-[id number] Performing Organization Address City/[facility]/Zipcode Phone Number [facility] [address] [place] [address] * Hemoglobin A1c (04/01/2018 7:07 AM) Hemoglobin A1C 5.7 4.0 - 6.0 % [facility] Comment: PATHOLOGY AND GENOMIC MEDICINE Less than 6% - Goal of therapy for Type II Diabetes Less than 7%-Goal of therapy for Type I Diabetes Less than 8%-Accepta ble control for Type I or Type II Diabetes Greater than 8%-Unacceptabl e control; action indicated. ([id number]) Specimen Blood Performing Organization Address City/[facility]/Zipcode Phone Number [place] [phone] [place] [address] PATHOLOGY AND GENOMIC MEDICINE * Troponin (03/31/2018 2:48 PM) Only the most recent of 3 results within the time period is included. Troponin 0.03 0.00 - 0.60 ng/mL [facility] Comment: PATHOLOGY AND 0.11 - 1.49 GENOMIC MEDICINE ng/mlMay indicate increased risk of acute coronary syndrome. >=1.5 ng/ml Consistent with acute myocardial infarction. The diagnostic value of a single normal or non-diagnostic result is questionable.Serial samples at 2-6 hour intervals are required to rule out acute myocardial injury. Specimen Plasma specimen Performing Organization Address [facility] [place] [address] PATHOLOGY AND GENOMIC MEDICINE * T3, free (03/31/2018 2:48 PM) T3, free 2.04 (L) 2.18 - 3.98 pmol/L [facility] PATHOLOGY AND [place] [facility] Specimen Plasma specimen Performing Organization [facility] [place] [address] PATHOLOGY AND [place] MEDICINE * Thyroid stimulating hormone (03/31/2018 2:48 PM) TSH <0.01 (L) 0.38 - 4.82 uIU/mL [facility] PATHOLOGY AND [place] [facility] Specimen Plasma specimen Performing Organization [facility] [place] [address] PATHOLOGY AND [place] [facility] * T4, free (03/31/2018 2:48 PM) T4, free 1.67 (H) 0.70 - 1.61 ng/dL [facility] PATHOLOGY AND [place] [facility] Specimen Plasma specimen Performing Organization [facility] [place] [address] PATHOLOGY AND GENOMIC MEDICINE * Lipase level (03/31/2018 2:48 PM) Only the most recent of 2 results within the time period is included. Lipase 68 65 - 230 U/L [facility] PATHOLOGY AND [place] MEDICINE Specimen Plasma specimen Performing Organization Address [facility] [place] [address] PATHOLOGY AND GENOMIC MEDICINE * Amylase level (03/31/2018 2:48 PM) Amylase 36 34 - 122 U/L [facility] PATHOLOGY AND [place] MEDICINE Specimen Plasma specimen Performing Organization Address [facility] Phone Number [address] [place] [address] PATHOLOGY AND [place] MEDICINE * Hepatic function panel (03/31/2018 2:48 PM) Albumin 2.3 (L) 3.2 - 5.0 g/dL [facility] PATHOLOGY AND GENOMIC MEDICINE Total bilirubin 0.2 0.2 - 1.2 mg/dL [facility] PATHOLOGY AND GENOMIC MEDICINE Bilirubin direct 0.1 0.0 - 0.4 mg/dL [facility] PATHOLOGY AND GENOMIC MEDICINE Alkaline phosphatase 77 30 - 120 U/L [facility] PATHOLOGY AND GENOMIC MEDICINE Protein 5.8 (L) 6.3 - 8.2 g/dL [facility] PATHOLOGY AND GENOMIC MEDICINE ALT 11 (L) 30 - 65 U/L [facility] PATHOLOGY AND GENOMIC MEDICINE AST 10 (L) 15 - 37 U/L [facility] PATHOLOGY AND [place] MEDICINE Specimen Plasma specimen Performing Organization Address City/[facility] Phone Number [address] [place] [phone] PATHOLOGY AND [place] MEDICINE * D-dimer (03/31/2018 9:04 AM) D-dimer 0.32 0.00 - 0.40 ug/mL FEU [facility] Comment: PATHOLOGY AND Units are ug/ml [employer] [place] MEDICINE Equivalent Unit. When combined with low clinical probability, D-dimer results of less than 0.5 ug/ml FEU have a good negativepredictive value in excluding PE or DVT. For D-dimer results greater than 0.5ug/ml FEU further testing is indicated if PE or DVT is suspectedclinically. Elevated D-dimer results have been reported in DVT, PE, and DIC cases and may indicate the presence of a clot. D-dimer results may be elevated due to old age, , inflammatory diseases, trauma, post-operative states, sepsis, and malignancies. Specimen Blood Performing Organization Address City/[facility]/Zipcode Phone Number [address] [place] [phone] PATHOLOGY AND [place] MEDICINE * CT Head Wo Contrast (03/30/2018 11:51 PM) Narrative Performed At EXAMINATION:CT HEAD WO CONTRAST HM RADIANT CLINICAL HISTORY:fall COMPARISON:CT head 07/22/2012 TECHNIQUE: Noncontrast head CT performed using radiation dose reduction techniques.Technical factors are evaluated and adjusted to ensure appropriate moderation of exposure.Automated dose management technology is applied to adjust radiation exposure while achieving a diagnostic quality image. FINDINGS: No evidence of acute intracranial hemorrhage, mass, mass effect, midline shift, or acute infarct. Mild to moderate chronic microvascular ischemic change. Ventricles and sulci are unchanged. Calcifications carotid siphons. Calvarium is intact. No change in mild enlargement of the left globe with irregular posterior wall compared to the right. No significant paranasal sinus mucosal thickening or mastoid fluid. IMPRESSION: 1. No CT evidence of acute intracranial abnormality. [facility]-[id number] Procedure Note Interface, Radiology Results Incoming - 03/30/2018 11:59 PM CDT EXAMINATION: CT HEAD WO CONTRAST CLINICAL HISTORY: fall COMPARISON: CT head 07/22/2012 TECHNIQUE: Noncontrast head CT performed using radiation dose reduction techniques. Technical factors are evaluated and adjusted to ensure appropriate moderation of exposure. Automated dose management technology is applied to adjust radiation exposure while achieving a diagnostic quality image. FINDINGS: No evidence of acute intracranial hemorrhage, mass, mass effect, midline shift, or acute infarct. Mild to moderate chronic microvascular ischemic change. Ventricles and sulci are unchanged. Calcifications carotid siphons. Calvarium is intact. No change in mild enlargement of the left globe with irregular posterior wall compared to the right. No significant paranasal sinus mucosal thickening or mastoid fluid. IMPRESSION: 1. No CT evidence of acute intracranial abnormality. [facility]-[id number] Performing Organization Address City/State/Zipcode Phone Number [facility] [address] [place] [address] * Urinalysis screen and microscopy, with reflex to culture (03/30/2018 11:30 PM) Specimen site Clean catch [facility] PATHOLOGY AND GENOMIC MEDICINE Color, UA Yellow [facility] PATHOLOGY AND GENOMIC MEDICINE Appearance, UA Clear [facility] PATHOLOGY AND GENOMIC MEDICINE Specific gravity, UA 1.016 1.001 - 1.035 [facility] PATHOLOGY AND GENOMIC MEDICINE pH, UA 7.0 5.0 - 8.5 [facility] PATHOLOGY AND GENOMIC MEDICINE Protein, UA Negative Negative [facility] PATHOLOGY AND GENOMIC MEDICINE Glucose, UA Negative Negative [facility] PATHOLOGY AND GENOMIC MEDICINE Ketones, UA Negative Negative [facility] PATHOLOGY AND GENOMIC MEDICINE Bilirubin, UA Negative Negative [facility] PATHOLOGY AND GENOMIC MEDICINE Blood, UA Negative Negative [facility] PATHOLOGY AND GENOMIC MEDICINE Nitrite, UA Negative Negative [facility] PATHOLOGY AND GENOMIC MEDICINE Urobilinogen, UA Negative <2.0 [facility] PATHOLOGY AND GENOMIC MEDICINE Leukocyte esterase, UA Trace (A) Negative [facility] PATHOLOGY AND GENOMIC MEDICINE WBC, UA 7 (H) 0 - 5 /HPF [facility] PATHOLOGY AND GENOMIC MEDICINE RBC, UA 1 0 - 5 /HPF [facility] PATHOLOGY AND GENOMIC MEDICINE Bacteria, UA None seen None seen [facility] PATHOLOGY AND GENOMIC MEDICINE Yeast, UA None seen [facility] PATHOLOGY AND GENOMIC MEDICINE Yeast with pseudohyphae, None seen [facility] UA PATHOLOGY AND GENOMIC MEDICINE Hyaline casts, UA 1 /LPF [facility] PATHOLOGY AND GENOMIC MEDICINE Specimen Urine Performing Organization Address City/State/Zipcode Phone Number [facility] [address] [place] [address] PATHOLOGY AND GENOMIC MEDICINE * Urine culture (03/30/2018 11:30 PM) Urine culture isolate No growth after 1 day. [facility] DEPARTMENT OF Comment: PATHOLOGY AND Specimen Information GENOMIC MEDICINE Specimen Source: Urine Specimen Site: Clean catch Specimen Urine Performing Organization Address City/State/Zipcode Phone Number [facility] DEPARTMENT OF [address] [place] [address] PATHOLOGY AND GENOMIC MEDICINE * ECG ED Preliminary Interpretation - NOT AN ORDER (03/30/2018 10:28 PM) Narrative Performed At Bryce Sanchez MD 03/30/2018 11:08 PM ECG ED Preliminary Interpretation - Not an Order Performed by: BRYCE SANCHEZ Authorized by: BRYCE SANCHEZ ECG reviewed by ED Physician in the absence of a survey field technician: yes Previous ECG: Previous ECG:Unavailable Interpretation: Interpretation: abnormal Rate: ECG rate:45 beats per minute ECG rate assessment: bradycardic Rhythm: Rhythm: sinus bradycardia Rhythm comment:Arrhythmia Ectopy: Ectopy: none QRS: QRS axis:Normal QRS intervals:Normal Conduction: Conduction: normal ST segments: ST segments:Normal T waves: T waves: normal Comments: EKG completed at 2246 on 03/30/2018 * Lactic acid level, SEPSIS - Now and repeat 2x every 3 hours (03/30/2018 9:39 PM) Lactic acid 1.2 0.5 - 2.2 mmol/L [facility] PATHOLOGY AND GENOMIC MEDICINE Specimen Blood Performing Organization Address City/State/Zipcode Phone Number [facility] OF [address] [place] [address] PATHOLOGY AND GENOMIC MEDICINE * XR Chest 1 Vw Portable (03/30/2018 9:31 PM) Narrative Performed At EXAMINATION:[facility]ST 1 [facility]:Chest Pain COMPARISON:None IMPRESSION: Cardiomediastinal silhouette is within normal limits. Mild vascular congestion. Some opacity of the left midlung is suspicious for developing infectious or inflammatory infiltrate. A 4-6 week follow-up chest x-ray is advised to assess resolution. No effusions or pneumothorax. A device projects over the left upper abdomen, with leads extending out of view over the thoracic inlet. No acute osseous abnormalities. Old left third rib fracture. [facility]-[id number] Procedure Note Hm Interface, Radiology Results Incoming - 03/30/2018 9:45 PM CDT EXAMINATION: XR CHEST 1 VW PORTABLE CLINICAL HISTORY: Chest Pain COMPARISON: None IMPRESSION: Cardiomediastinal silhouette is within normal limits. Mild vascular congestion. Some opacity of the left midlung is suspicious for developing infectious or inflammatory infiltrate. A 4-6 week follow-up chest x- ray is advised to assess resolution. No effusions or pneumothorax. A device projects over the left upper abdomen, with leads extending out of view over the thoracic inlet. No acute osseous abnormalities. Old left third rib fracture. [facility]-[id number] Performing Organization Address City/State/Zipcode Phone Number [facility] [address] [place] [address] after 08/09/2017 Insurance Payer Benefit Subscriber ID Type Phone Address Plan / Group BCBS BCBS xxxxxxxxxxxx PPO CHOICE PPO/[place] [address]
== END | disposition home or self-care (01) ==
LOC: OR 10:06
PROVIDERS: ATTEND Internal Medicine Gastroenterology
DX: Z12.11 Encounter for screening for malignant neoplasm of colon (principal); D12.2 Benign neoplasm of ascending colon; D12.4 Benign neoplasm of descending colon; K29.70 Gastritis, unspecified, without bleeding; K58.9 Irritable bowel syndrome, unspecified; K21.0 Gastro-esophageal reflux disease with esophagitis; K22.8 Other specified diseases of esophagus; K44.9 Diaphragmatic hernia without obstruction or gangrene; K59.00 Constipation, unspecified; K64.8 Other hemorrhoids; J45.909 Unspecified asthma, uncomplicated; E11.9 Type 2 diabetes mellitus without complications; E03.9 Hypothyroidism, unspecified; I10 Essential (primary) hypertension; I69.354 Hemiplegia and hemiparesis following cerebral infarction affecting left non-dominant side; E55.9 Vitamin D deficiency, unspecified; F32.9 Major depressive disorder, single episode, unspecified; Z91.048 Other nonmedicinal substance allergy status; F41.9 Anxiety disorder, unspecified; Z88.6 Allergy status to analgesic agent; Z88.8 Allergy status to other drugs, medicaments and biological substances; Z80.0 Family history of malignant neoplasm of digestive organs
CPT/HCPCS: 36415; 43239; 45384; 82948; 93005; J2250; 45378; 45380